=== PATIENT | female | born 1940 | race Caucasian/White ===

== ENCOUNTER 2016-12-23 04:59 | Inpatient (IN) | payer MEDICARE, BC ==
[~2016-12-23 04:59] MED LIST: ASPIRIN EC81 MG PO; ATORVASTATIN CA40 M1 PO; CENTRUM SILVER1 EAC3 PO; CHLORTHALIDONE25 M1 PO; CIPRO500 M2 PO; EFFIENT10 MG PO; FISH OIL 1,2001 EAC5 PO; GLUCOSAMIN-CHO1 EAC1 PO; HAIR, SKIN & N1 EAC1 PO; NORVASC10 M2 PO; OMEPRAZOLE20 M3 PO; OXYBUTYNIN CHLOR5 M3 PO; PAIN RELIEF500 M4 PO; PRINIVIL10 M1 PO; SINEMET 25-1001 EAC1 PO; SLEEP AID25 M2 PO; STOOL SOFTENER100 M3 PO; TELMISARTAN-AM1 EAC1 PO; ULTRAM50 M1 PO; VITAMIN C500 M3 PO
[2016-12-23 06:12] LABS: PROTHROMBIN TIME 11.3 SECONDS (9.0-13.6)
[2016-12-24 06:31] LABS: BASO % 0.2 % (0-2); EOS % 0.1 % (0-7); HCT-HEMATOCRIT 29.7 % (34.0-49.0); HGB-HEMOGLOBIN 9.8 gm/dl (12.0-15.5); IMMATURE GRANULOCYTES ABSOLUTE 0.02 tho/cmm (0-0.03); IMMATURE GRANULOCYTES PERCENT 0.2 % (0-0.3); LYMPH ABSOLUTE COUNT 1.3 tho/cmm (0.8-4.5); MCH (MEAN CORPUSCULAR HGB) 31.4 pg (28.0-32.0); MCV (MEAN CELL VOLUME) 95.2 fl (82.0-96.0); MEAN PLATELET VOLUME 10.4 cmc (9.4-12.4); MONO % 18.9 % (0-12); MONOCYTE ABSOLUTE COUNT 2.2 tho/cmm (0.0-1.2); NEUTROPHIL ABSOLUTE COUNT 8.3 tho/cmm (1.6-8.0); NEUTROPHIL-AUTOMATED 8.3 tho/cmm (1.6-8.0); NEUTROPHILS % 69.6 % (40-80); PLATELET COUNT 213 tho/cmm (150-450); RED BLOOD COUNT 3.12 mil/cmm (4.00-5.20); RED CELL DISTRIBUTION WIDTH 13.7 % (12.4-16.4); WHITE BLOOD COUNT 11.9 tho/cmm (4.0-10.0)
[2016-12-24 06:40] LABS: CREATININE 1.15 mg/dl (0.50-1.10); POTASSIUM 4.3 mmol/L (3.7-5.1); eGFR VALUE FOR BLACK 53 mL/Min
[2016-12-25] MEDS ORDERED: MILK OF MAGNESIA PO (09:58)
[2016-12-25] MEDS ORDERED: SENOKOT-S TABL1 EACH PO (09:58)
[2016-12-25] MEDS ORDERED: TYLENOL325 M2 PO (09:59)
[2016-12-25] MEDS ORDERED: ULTRAM50 M1 PO (10:00)
[2016-12-25] MEDS ORDERED: ROXICODONE5 M2 PO (10:03)
[2016-12-25] MEDS ORDERED: MOBIC7.5 M2 PO (10:04)
== END 2016-12-25 14:00 | DRG 470 ==
LOC: SHSC 04:59 → ORE 06:52 → PACU 08:43 → 5EA 09:45
PROVIDERS: Family Medicine; Physician Assistant Surgical; ADMIT Orthopaedic Surgery Foot and Ankle Surgery
PROC: 0SRC0J9 Replacement of Right Knee Joint with Synthetic Substitute, Cemented, Open Approach (ICD-10-PCS; principal; 2016-12-23)
DX: M17.11 Unilateral primary osteoarthritis, right knee (principal); N39.0 Urinary tract infection, site not specified; G20 Parkinson's disease; D62 Acute posthemorrhagic anemia; B96.1 Klebsiella pneumoniae [K. pneumoniae] as the cause of diseases classified elsewhere; I25.10 Atherosclerotic heart disease of native coronary artery without angina pectoris; Z95.5 Presence of coronary angioplasty implant and graft; I12.9 Hypertensive chronic kidney disease with stage 1 through stage 4 chronic kidney disease, or unspecified chronic kidney disease; N18.3 Chronic kidney disease, stage 3 (moderate); Z79.82 Long term (current) use of aspirin
CPT/HCPCS: C1713; C1776; J0171; J0690; J1885; J2270; J2795